=== PATIENT | male | born 1955 | race Caucasian/White ===

== ENCOUNTER → 2023-09-25 08:37 | Outpatient (REF) | payer MEDICARE, OTHER, SELFPAY | LOC: RAD 08:37 | PROVIDERS: ATTENDING PHYSICIAN Family Medicine | DX: R74.8 Abnormal levels of other serum enzymes (principal) | CPT/HCPCS: 78306; A9503 ==

== ENCOUNTER → 2023-10-18 08:28 | Outpatient (REF) | payer MEDICARE, OTHER, SELFPAY | LOC: MRI 3T 08:28 | PROVIDERS: ATTENDING PHYSICIAN Family Medicine | DX: R94.8 Abnormal results of function studies of other organs and systems (principal) | CPT/HCPCS: 72148 ==

== ENCOUNTER → 2024-03-26 07:17 | Outpatient (REF) | payer MEDICARE, OTHER, SELFPAY ==
[2024-03-26 09:09] LABS: Blood Urea Nitrogen 22 mg/dl (9-20); Calcium 9.6 mg/dl (8.4-10.2); Carbon Dioxide 27 mmol/L (22-30); Chloride 101 mmol/L (98-107); Glucose 109 mg/dl (70-99); Potassium 5.3 mmol/L (3.5-5.1); Sodium 138 mmol/L (135-145); eGFR > 60.00
== END ==
LOC: REG 07:17
PROVIDERS: ATTENDING PHYSICIAN Specialist
DX: C67.9 Malignant neoplasm of bladder, unspecified (principal)
CPT/HCPCS: 36415; 80048

== ENCOUNTER → 2024-03-31 08:26 | Outpatient (REF) | payer MEDICARE, OTHER, SELFPAY | LOC: RAD 08:26 | PROVIDERS: ATTENDING PHYSICIAN Specialist; FAMILY PHYSICIAN Family Medicine | DX: C67.9 Malignant neoplasm of bladder, unspecified (principal) | CPT/HCPCS: 74177; Q9967 ==

== ENCOUNTER → 2024-04-14 08:52 | Outpatient (REF) | payer MEDICARE, OTHER, SELFPAY ==
[2024-04-14 11:34] LABS: Hematocrit 41.5 % (39.0-52.0); Hemoglobin 13.7 g/dL (13.0-18.0); Mean Corpuscular Volume 81.9 fL (80.0-94.0); Mean Platelet Volume 9.5 fL (7.4-10.4); Platelet Count 277 10^3/uL (130-400); Red Blood Cell Count 5.07 10^6/uL (4.70-6.10); Red Cell Dist. Width 13.8 % (11.5-14.5); White Blood Cell Count 6.2 10^3/uL (4.8-10.8)
== END ==
LOC: SDSPAT 08:52
PROVIDERS: ATTENDING PHYSICIAN Specialist; FAMILY PHYSICIAN Family Medicine
DX: Z01.818 Encounter for other preprocedural examination (principal)
CPT/HCPCS: 36415; 85027; 93005

== ENCOUNTER 2024-04-21 06:36 | Day surgery (SDC) | payer MEDICARE, OTHER, SELFPAY ==
[2024-04-14 14:17] VITALS: BMI 31.7
[2024-04-21] VITALS (8 sets, daily range): BP systolic 115–143; BP diastolic 82–98; BMI 31.7
[2024-04-21] MEDS: NORMOSOL-R/PLASMALYTE-A 1000 IV (11:04)
[2024-04-21] MEDS: Pyridium 200 MG PO (11:04)
[2024-04-21] MEDS: CYSVIEW KIT 100 MG INTRAVES (11:19)
== END 2024-04-21 15:28 | disposition home or self-care (01) ==
LOC: SDS 06:36
PROVIDERS: ATTENDING PHYSICIAN Specialist
DX: N30.90 Cystitis, unspecified without hematuria (principal); N13.30 Unspecified hydronephrosis; Z92.21 Personal history of antineoplastic chemotherapy; Z85.51 Personal history of malignant neoplasm of bladder
CPT/HCPCS: 52224; C9738; 88305; 74420; 76000; A9589

== ENCOUNTER → 2024-08-09 07:22 | Outpatient (REF) | payer MEDICARE, OTHER, SELFPAY ==
[2024-08-09 09:48] LABS: Blood Urea Nitrogen 24 mg/dl (9-20); Calcium 9.9 mg/dl (8.4-10.2); Carbon Dioxide 24 mmol/L (22-30); Chloride 107 mmol/L (98-107); Glucose 97 mg/dl (70-99); Potassium 4.5 mmol/L (3.5-5.1); Sodium 141 mmol/L (135-145); eGFR > 60.00
== END ==
LOC: REG 07:22
PROVIDERS: ATTENDING PHYSICIAN Specialist; FAMILY PHYSICIAN Family Medicine
DX: N13.9 Obstructive and reflux uropathy, unspecified (principal)
CPT/HCPCS: 36415; 80048

== ENCOUNTER → 2024-11-05 06:58 | Outpatient (REF) | payer MEDICARE, OTHER, SELFPAY ==
[2024-11-05 08:13] LABS: Blood Urea Nitrogen 24 mg/dl (9-20); Calcium 9.9 mg/dl (8.4-10.2); Carbon Dioxide 28 mmol/L (22-30); Chloride 105 mmol/L (98-107); Glucose 111 mg/dl (70-99); Potassium 5.1 mmol/L (3.5-5.1); Sodium 140 mmol/L (135-145); eGFR 59.84
== END ==
LOC: REG 06:58
PROVIDERS: ATTENDING PHYSICIAN Specialist; FAMILY PHYSICIAN Family Medicine
DX: N13.9 Obstructive and reflux uropathy, unspecified (principal)
CPT/HCPCS: 36415; 80048; 88112